=== PATIENT | male | born 1950 | race Caucasian/White ===

== ENCOUNTER 2021-12-12 16:10 | Emergency (ER) | payer MEDICARE, SELFPAY ==
[2021-12-12 16:39] VITALS: BP 98/63; PULSE 103; RESP 18; TEMP 36.7; O2SAT 95; BMI 28.3
[2021-12-12 17:08] LABS: Basophils % 0.4 %; Eosinophils # 0.1 10^3/uL (0.0-0.8); Eosinophils % 0.5 %; Hematocrit 38.4 % (42.0-52.0); Hemoglobin 12.8 g/dL (11.7-16.6); Lymphocytes # 1.3 10^3/uL (0.8-4.8); Lymphocytes % 14.3 %; Mean Corpuscular HGB Conc 33.3 g/dL (30.0-36.0); Mean Platelet Volume 10.8 fL (7.4-10.4); Monocytes # 1.3 10^3/uL (0.2-0.9); Monocytes % 14.1 %; Neutrophils # 6.61 10^3/uL (1.8-7.7); Neutrophils % 70.4 %; Nucleated Red Blood Cells % 0 %; Platelet Count 208 10^3/cmm (130-400); Red Blood Count 4.13 10^6/uL (4.1-5.3); Red Cell Distribution Width 12.7 % (12.1-15.1); White Blood Count 9.4 10^3/uL (4.0-10.0)
[2021-12-12 17:33] LABS: Alanine Aminotransferase 15 U/L (0-41); Albumin Level 4.1 g/dL (3.5-5.2); Alkaline Phosphatase 57 IU/L (40-130); Anion Gap 18.4 (5-19); Aspartate Amino Transferase 13 U/L (0-40); Blood Urea Nitrogen 21 mg/dL (8-23); Calcium 9.1 mg/dL (8.5-10.5); Carbon Dioxide 25 mmol/L (22-29); Chloride 99 mmol/L (98-107); Globulin 2.3 g/dL (1.3-4.6); Glomerular Filtration Rate 95.6 mL/min (90-130); Glucose 98 mg/dL (65-115); Osmolality Calculated 289 mOsm/kg (285-295); Potassium 4.4 mmol/L (3.5-5.1); Sodium 138 mmol/L (136-145); Total Bilirubin 0.7 mg/dL (0.15-1.2); Total Protein 6.4 g/dL (6.6-8.7)
[2021-12-12 18:11] VITALS: BP 111/66; PULSE 90; RESP 16; O2SAT 96
[2021-12-12 18:41] LABS: Add Urine Microscopic? YES; Bilirubin Urine 1+ (Negative); Blood Urine Neg (Negative); Glucose Urine UA Norm (Normal); Ketones Urine 2+ (Negative); Leukocyte Esterase Urine Negative (Negative); Nitrate Urine Negative (Negative); Protein Urine Trace (Negative); Specific Gravity, Urine 1.025 (1.005-1.030); Urine Appearance Clear (CLEAR); Urine Color Yellow (Yellow); Urobilinogen Urine Norm (Negative); pH Urine 5 (5-7)
[2021-12-12 18:46] LABS: Add Urine Culture? No; Bacteria Urine TRACE /hpf; Mucus Urine 3+ /hpf; WBC Urine RARE /hpf (0-5)
--- NOTE | 2021-12-12 19:13 | W.ED.ABDPA2 ---
HPI - Abdominal Pain General: Chief Complaint: Abdominal Pain Stated Complaint: abd pain Time Seen by Provider: 12/12/21 19:12 History of Present Illness: Mr. Ojeda is a 71-year-old gentleman who presents to the emergency department due to concern over GI infection. He reports onset of symptoms approximately 3 days ago after eating. That night he had increased GERD as well as a few episodes of loose stools. Since that time he has had near continuous abdominal pain. Additionally earlier today he noticed some knee pain with warmth and swelling. Overall course of symptoms has worsened. Intensity is moderate. No other specific changes in health, exacerbating, or alleviating factors identified. Onset (ago): day(s) Pain Consistency: constant Location: Diffuse Severity: moderate Radiation: none Migration to: no migration Exacerbating factors: eating and movement Review of Systems General: Reports: 10 or more systems reviewed and unremarkable except in HPI and below PFSH ED PFSH: Medical History History of colon cancer Hypertension Surgical History History of bowel resection History of knee replacement Social History Quit status (tobacco): has quit using tobacco Year quit tobacco: When patient was 23 Alcohol intake: never Physical Exam Const: COMMON NORMALS: alert GENERAL APPEARANCE: cooperative and well developed HENMT: COMMON NORMALS: normocephalic and atraumatic HEAD & SCALP: normocephalic and atraumatic THROAT: posterior oropharynx normal Eye: COMMON NORMALS: conjunctivae normal CONJUNCTIVA: Yes conjunctivae normal SCLERA: sclerae normal Neck/C-Spine: COMMON NORMALS: supple GENERAL: Yes trachea midline Resp: COMMON NORMALS: normal respiratory effort and clear to auscultation bilaterally EFFORT & INSPECTION: Yes able to speak in complete sentences AUSCULTATION: clear to auscultation bilaterally Cardio: COMMON NORMALS: regular rate and regular rhythm RATE: regular rate RHYTHM: regular rhythm GI: COMMON NORMALS: Soft to palpation PALPATION: Yes Soft to palpation, Yes Tenderness to palpation present (GI) (Mild generalized), No Guarding due to palpation present (GI) and No Rigid due to palpation PERCUSSION: normal to percussion Extremity: NARRATIVE EXTREMITY EXAM: Right knee swollen and warm to touch. No overlying skin changes. GENERAL: Yes normal exam except as noted and No edema Neuro: COMMON NORMALS: moves all extremities SENSORIUM/ORIENTATION: Yes alert and No Orientation impaired Psych: COMMON NORMALS: mental status grossly normal and Normal thought process present THOUGHT PROCESS: Normal thought process present Course ED course: - Patient was seen and evaluated by me at bedside - Patient placed on cardiac monitors, IV access obtained - Initial evaluation notable for exam as above - Labs and xrays personally interpreted by me - Labs notable for no leukocytosis, normal BUN. Metabolic panel without significant acute abnormality. CRP elevated though ESR is normal. No UTI. - Imaging notable for enteritis. Incidental finding of focal area of mild irregularity of the proximal transverse colon discussed with patient. Patient had a colonoscopy approximately 2 months ago. Pancreatic lesion also discussed as well as enlarged prostate. -Challenging situation with regards to evaluating the knee. Patient has history of total knee arthroplasty. I discussed with orthopedics on-call. They recommended outpatient evaluation. Laboratory studies and physical exam findings. I discussed this at length with the patient including possibility of septic joint. I do not perform arthrocentesis on prosthetic joints and orthopedics did not feel that evidence was significant enough for them to come in to perform procedure. Patient is comfortable with outpatient follow-up and has an orthopedist that he plans to see outside of our system. - Upon serial reexamination after treatment the patient was improved - Based on patient history, evaluation, and testing as interpreted the most likely cause of the patient's condition is enteritis and knee swelling of uncertain etiology. - The results of ED evaluation were discussed with the patient including prescriptions and/or symptomatic cares (if applicable) including appropriate and responsible use, followup plan, and return precautions. The patient verbalized understanding and felt safe for discharge. - Patient discharged in satisfactory condition. Note: Click bubbles or prepopulated lobo in note writing are used for assistance with data collection and billing and are inherently more limited than narrative and other text portions of this note. Please use narrative for additional clinical history and defer to narrative/free test for any case of contradictory information. If information appears in only free text or click bubble it should be considered present or absent as reported. Please contact note junior copywriter for clarifications of clinical information or contradictory information. MDM is a brief summary, contradictory or erroneous seeming information should be clarified and full note should be reviewed. Vital Signs: Vital signs: Vital Signs Temperature 98.1 F 12/12/21 16:39 Pulse Rate 81 12/12/21 22:30 Respiratory Rate 16 12/12/21 22:30 Blood Pressure 115/60 12/12/21 22:30 Pulse Oximetry 96 12/12/21 22:30 Oxygen Delivery Me thod 12/12/21 21:04 MDM - Abdominal Pain Medical Decision Making 71-year-old gentleman presenting with GI symptoms and abdominal pain as well as knee swelling and warmth. Patient found to have enteritis without evidence of sepsis. Discussed with orthopedics. Satisfactory for outpatient management with Augmentin. Strict follow-up guidelines and return precautions given. Medical Records I reviewed the patient's medical records. Lab Data I reviewed the patient's lab results. : 12/12/21 16:53 12/12/21 16:53 Labs/Radiology: Radiology Impressions Abdomen/Pelvis CT 12/12/21 19:26 IMPRESSION: 1. Multiple mildly thick-walled, fluid-filled loops of small bowel, suggestive of nonspecific enteritis. 2. Questionable focal area of mild irregular wall thickening in the proximal transverse colon. Given the patient's clinical history, colonoscopy is suggested. 3. 2.7 x 2.1 cm multiloculated cystic lesion in the pancreatic tail, possibly a cyst or pseudocyst. Consider MRI to exclude cystic neoplasm. 4. Mildly enlarged, nodular prostate, projecting into the urinary bladder base. Correlate with clinical exam and PSA levels. 5. Additional findings, as above. COMMENTS: Consistent with the [employer]'s Incidental Findings Committee white paper (J Am Prema Radiol 2018): Any incidental renal lesion less than 1 cm or classified as too small to characterize, or any incidental cystic renal lesion characterized as simple-appearing, is likely benign. No follow-up imaging is recommended for these lesions per consensus recommendations based on imaging criteria. Knee X-Ray 12/12/21 19:26 IMPRESSION: Moderate soft tissue swelling and effusion. If there is clinical concern for intra-articular infection, joint aspiration may be useful. Laboratory Results WBC 9.4 10^3/uL (4.0-10.0) 12/12/21 16:53 RBC 4.13 10^6/uL (4.1-5.3) 12/12/21 16:53 Hgb 12.8 g/dL (11.7-16.6) 12/12/21 16:53 Hct 38.4 % (42.0-52.0) L 12/12/21 16:53 MCV 93.0 fl (80-94) 12/12/21 16:53 MCH 31.0 pg (28.0-34.0) 12/12/21 16:53 MCHC 33.3 g/dL (30.0-36.0) 12/12/21 16:53 RDW 12.7 % (12.1-15.1) 12/12/21 16:53 Plt Count 208 10^3/cmm (130-400) 12/12/21 16:53 MPV 10.8 fL (7.4-10.4) H 12/12/21 16:53 Neut % (Auto) 70.4 % 12/12/21 16:53 Lymph % (Auto) 14.3 % 12/12/21 16:53 [place] % (Auto) 14.1 % 12/12/21 16:53 Eos % (Auto) 0.5 % 12/12/21 16:53 Baso % (Auto) 0.4 % 12/12/21 16:53 Neut # (Auto) 6.61 10^3/uL (1.8-7.7) 12/12/21 16:53 Lymph # (Auto) 1.3 10^3/uL (0.8-4.8) 12/12/21 16:53 [place] # (Auto) 1.3 10^3/uL (0.2-0.9) H 12/12/21 16:53 Eos # (Auto) 0.1 10^3/uL (0.0-0.8) 12/12/21 16:53 Baso # (Auto) 0.0 10^3/uL (0.0-0.1) 12/12/21 16:53 Nucleated RBC % (auto) 0 % 12/12/21 16:53 Nucleated RBCs # 0.0 /100WBC 12/12/21 16:53 ESR 4 mm/hr (0-10) 12/12/21 16:53 Sodium 138 mmol/L (136-145) 12/12/21 16:53 Potassium 4.4 mmol/L (3.5-5.1) 12/12/21 16:53 Chloride 99 mmol/L (98-107) 12/12/21 16:53 Carbon Dioxide 25 mmol/L (22-29) 12/12/21 16:53 Anion Gap 18.4 (5-19) 12/12/21 16:53 BUN 21 mg/dL (8-23) 12/12/21 16:53 Creatinine 0.8 mg/dL (0.7-1.2) 12/12/21 16:53 GFR Calculation 95.6 mL/min (90-130) 12/12/21 16:53 Glucose 98 mg/dL (65-115) 12/12/21 16:53 Calculated Osmolality 289 mOsm/kg (285-295) 12/12/21 16:53 Calcium 9.1 mg/dL (8.5-10.5) 12/12/21 16:53 Total Bilirubin 0.7 mg/dL (0.15-1.2) 12/12/21 16:53 AST 13 U/L (0-40) 12/12/21 16:53 ALT 15 U/L (0-41) 12/12/21 16:53 Alkaline Phosphatase 57 IU/L (40-130) 12/12/21 16:53 C-Reactive Protein 61.2 mg/L (0.0-4.9) H 12/12/21 16:53 Total Protein 6.4 g/dL (6.6-8.7) L 12/12/21 16:53 Albumin 4.1 g/dL (3.5-5.2) 12/12/21 16:53 Globulin 2.3 g/dL (1.3-4.6) 12/12/21 16:53 Urine Color Yellow (Yellow) 12/12/21 16:54 Urine Appearance Clear (CLEAR) 12/12/21 16:54 Urine pH 5 (5-7) 12/12/21 16:54 Ur Specific [place] 1.025 (1.005-1.030) 12/12/21 16:54 Urine Protein Trace (Negative) 12/12/21 16:54 Urine Glucose (UA) Norm (Normal) 12/12/21 16:54 Urine Ketones 2+ (Negative) H 12/12/21 16:54 Urine Blood Neg (Negative) 12/12/21 16:54 Urine Nitrate Negative (Negative) 12/12/21 16:54 Urine Bilirubin 1+ (Negative) H 12/12/21 16:54 Urine Urobilinogen Norm mg/dL (Negative) 12/12/21 16:54 Ur Leukocyte Esterase Negative (Negative) 12/12/21 16:54 Urine RBC None /hpf (0-2) 12/12/21 16:54 Urine WBC Rare /hpf (0-5) 12/12/21 16:54 Ur Squamous Epith Cells None /hpf (0-5) 12/12/21 16:54 Amorphous Sediment Not Reportable 12/12/21 16:54 Urine Bacteria Trace /hpf (NONE) 12/12/21 16:54 Urine Mucus 3+ /hpf 12/12/21 16:54 Discharge Plan Discharge Patient Disposition: Home Clinical Impression: Abdominal pain, Enteritis, Pancreatic abnormality, Knee swelling, Prostatic enlargement Condition: Stable Prescriptions: New ondansetron 4 mg tablet,disintegrating 4 mg PO Q8H PRN (Reason: nausea and vomiting) Qty: 15 0RF amoxicillin-pot clavulanate 875-125 mg tablet 1 tab PO BID Qty: 20 0RF Discharge Orders: Discharge ED (Routine); Ordered 12/12/21 Ordered By: Pietro Khan Discharge Diet: Advance as tolerated and Clear Liquid Discharge Activity: Increase activity as tolerated Patient Instructions: Swollen Knee Joint (ED), Abdominal Pain (ED), Enteritis (ED), Opioid Safety Activity Restrictions/Additional Instructions: Thank you for visiting the emergency department. You were seen and evaluated for abdominal pain and knee swelling. You are found to have enteritis which likely explains the abdominal symptoms. The exact cause of your knee pain is unclear as discussed, I recommend follow-up with your orthopedist early this week. Incidental findings on your CT scanning include 2.7 x 2.1 cm multiloculated cystic lesion in the pancreatic tail possibly a cyst or pseudocyst. Consider MRI to exclude cystic neoplasm. Additionally you have mildly enlarged nodular prostate projecting into the urinary bladder base and further evaluation is recommended. Please follow-up with your primary care provider. Please return to the emergency department for worsening symptoms or anything else that you are concerned about and feel needs emergency department evaluation. Coding Level of Care Code ED School Services Officer for Chg Fwd Exam Comprehensive
--- NOTE | 2021-12-12 19:26 | CTR_ITS ---
PROCEDURE INFORMATION: Exam: CT Abdomen And Pelvis With Contrast Exam date and time: 12/12/2021 8:25 PM Age: 71 years old Clinical indication: Abdominal pain; Generalized; Prior surgery; Surgery date: 6+ months; Patient HX: HX of colon CA w resection C/O abd pain w reflux; Additional info: Diffuse abd pain, HX bowel resection TECHNIQUE: Imaging protocol: Computed tomography of the abdomen and pelvis with contrast. Axial, coronal and sagittal reformatted images were created and reviewed. Radiation optimization: All CT scans at this facility use at least one of these dose optimization techniques: automated exposure control; mA and/or kV adjustment per patient size (includes targeted exams where dose is matched to clinical indication); or iterative reconstruction. Contrast material: OMNI 350; Contrast volume: 95 ml; Contrast route: INTRAVENOUS (IV); COMPARISON: No relevant prior studies available. RADIATION DOSE METRICS: Total DLP (mGy-cm): 607.03 FINDINGS: Lungs: Linear stranding and groundglass at the lung bases, likely due to atelectasis and/or scarring. Diaphragm: Small hiatal hernia. Elevated right hemidiaphragm. Liver: Unremarkable. Gallbladder and bile ducts: No radiodense gallstones. No biliary ductal dilatation. Pancreas: 2.7 x 2.1 cm multiloculated cystic lesion in the pancreatic tail. Spleen: Punctate calcified splenic granuloma. Adrenal glands: Normal. No mass. Kidneys and ureters: Bilateral renal parapelvic cysts (no follow-up is indicated based on the imaging appearance). No radiodense calculi. No hydronephrosis. Stomach and bowel: Multiple mildly thick-walled, fluid-filled loops of small bowel, suggestive of nonspecific enteritis. Questionable focal area of mild irregular wall thickening in the proximal transverse colon. Suture material in the sigmoid colon, consistent with prior resection. Moderate amount of retained stool in the colon. Colonic diverticulosis without evidence of diverticulitis. No obstruction. No pneumatosis. Appendix: Normal. Intraperitoneal space: No free fluid. No organized fluid collection. No free air. Vasculature: Unremarkable. No aneurysm. Lymph nodes: No pathologically enlarged lymph nodes. Urinary bladder: Unremarkable. Reproductive: Mildly enlarged, nodular prostate, projecting into the urinary bladder base. Bones/joints: No acute osseous abnormality. Mild degenerative changes. L4 vertebral body hemangioma. Old bilateral rib fractures. Soft tissues: Small, fat containing umbilical hernia. CT/CT abdomen pelvis w con* [id number] IMPRESSION: 1. Multiple mildly thick-walled, fluid-filled loops of small bowel, suggestive of nonspecific enteritis. 2. Questionable focal area of mild irregular wall thickening in the proximal transverse colon. Given the patient's clinical history, colonoscopy is suggested. 3. 2.7 x 2.1 cm multiloculated cystic lesion in the pancreatic tail, possibly a cyst or pseudocyst. Consider MRI to exclude cystic neoplasm. 4. Mildly enlarged, nodular prostate, projecting into the urinary bladder base. Correlate with clinical exam and PSA levels. 5. Additional findings, as above. COMMENTS: Consistent with the [place] [employer]'s Incidental Findings Committee white paper (J Am Prema Radiol 2018): Any incidental renal lesion less than 1 cm or classified as too small to characterize, or any incidental cystic renal lesion characterized as simple-appearing, is likely benign. No follow-up imaging is recommended for these lesions per consensus recommendations based on imaging criteria.
--- NOTE | 2021-12-12 19:26 | XRR_ITS ---
PROCEDURE INFORMATION: Exam: XR Right Knee Exam date and time: 12/12/2021 7:37 PM Age: 71 years old Clinical indication: Swelling or effusion of joint; Prior surgery; Surgery date: 6+ months; Surgery type: Knee replacement; Additional info: Swelling, pain, HX replacement TECHNIQUE: Imaging protocol: Radiologic exam of the Right knee. Views: 3 views. COMPARISON: No relevant prior studies available. FINDINGS: Bones/joints: Total knee arthroplasty in anatomic alignment. No radiographic evidence of acute fracture or dislocation. Moderate effusion. Soft tissues: Diffuse soft tissue swelling. XR/XR knee RT 3V* [id number] IMPRESSION: Moderate soft tissue swelling and effusion. If there is clinical concern for intra-articular infection, joint aspiration may be useful.
[2021-12-12 19:53] VITALS: BP 113/54; PULSE 101; RESP 16; O2SAT 96
[2021-12-12] MEDS: iohexol 350 mg/mL 100 mL Btl IV (20:36)
[2021-12-12 20:49] LABS: Erythrocyte Sedimentation Rate 4 mm/hr (0-10)
[2021-12-12 21:00] LABS: C Reactive Protein 61.2 mg/L (0.0-4.9)
[2021-12-12 21:04] VITALS: BP 106/55; PULSE 90; RESP 16; O2SAT 94
--- NOTE | 2021-12-12 22:20 | PC.NURSE ---
placed an oma wrap bandage on right knee per charge nurse orders.
[2021-12-12] MEDS: amoxicillin-clav 875-125 mg Tablet 1 TAB PO (22:26)
[2021-12-12 22:30] VITALS: BP 115/60; PULSE 81; RESP 16; O2SAT 96
== END 2021-12-12 22:35 | disposition home or self-care (01) ==
PROVIDERS: Family Medicine; Emergency Provider Emergency Medicine
DX: K52.9 Noninfective gastroenteritis and colitis, unspecified (principal); M79.89 Other specified soft tissue disorders; N40.0 Benign prostatic hyperplasia without lower urinary tract symptoms; K86.9 Disease of pancreas, unspecified; Z85.038 Personal history of other malignant neoplasm of large intestine; I10 Essential (primary) hypertension; Z87.891 Personal history of nicotine dependence; Z96.651 Presence of right artificial knee joint
CPT/HCPCS: 73562; 74177; 80053; 81001; 85025; 85651; 86140; 87040; 99284; Q9967